=== PATIENT | female | born 1990 | race African-American/Black ===

== ENCOUNTER 2024-04-20 23:31 | Emergency (ER) | payer MEDICAID, OTHER ==
[~2024-04-20] VITALS: Ht 157.5 cm; Wt 83.5 kg
[2024-04-21 00:04] LABS: *OCCULT BLOOD STOOL NEGATIVE (NEGATIVE)
[2024-04-21] MEDS: IV NORMAL SALINE 1000 ML BAG IV ONE (00:14)
[2024-04-21] MEDS ORDERED: PANTOPRAZOLE SODIUM 40 MG VIAL ONE (00:23)
[2024-04-21 00:27] LABS: BASOPHILS # (AUTO) 0.1 K/UL (0.0-0.2); EOSINOPHILS # (AUTO) 0.1 K/uL (0.0-0.7); EOSINOPHILS % (AUTO) 1.5 % (0.0-7.0); HEMATOCRIT 36.6 % (31.2-41.9); HEMOGLOBIN 12.2 g/dL (10.9-14.3); LYMPHOCYTES % (AUTO) 31.9 % (20.5-51.5); MEAN CORPUSCULAR HEMOGLOBIN 25.4 uug (24.7-32.8); MEAN CORPUSCULAR HGB CONC 33 g/dL (32.3-35.6); MEAN CORPUSCULAR VOLUME 76.5 fL (75.5-95.3); MONOCYTES # (AUTO) 0.5 K/uL (0.1-1.30); MONOCYTES % (AUTO) 8.4 % (0.0-11.0); NEUTROPHILS # (AUTO) 3.6 K/uL (1.8-8.9); NEUTROPHILS % (AUTO) 57.2 % (38.5-71.5); PLATELET COUNT (AUTO) 169 K/uL (179-408); RED BLOOD CELL COUNT(AUTO) 4.78 MIL/uL (3.63-4.92); RED CELL DISTRIBUTION WIDTH 18.3 % (12.3-17.7); WHITE BLOOD COUNT (AUTO) 6.3 K/uL (3.8-11.8)
[2024-04-21 00:30] LABS: DIFFERENTIAL COMMENT 1
[2024-04-21] MEDS: PANTOPRAZOLE SODIUM IV 80 MG in IV DEXTROSE 5% 100 ML IV ONE (00:31)
[2024-04-21 00:39] LABS: CALCIUM 8.6 mg/dL (8.5-10.1); CREATININE 0.7 mg/dL (0.6-1.3); POTASSIUM 3.4 mmol/L (3.5-5.1)
[2024-04-21 00:46] LABS: ALBUMIN 3.2 g/dL (3.4-5.0); BILIRUBIN,DIRECT 0.4 mg/dL (0.0-0.2); BILIRUBIN,TOTAL 0.7 mg/dL (0.2-1.0); TOTAL PROTEIN, SERUM 8.9 g/dL (6.4-8.2)
[2024-04-21 01:11] VITALS: BP 131/78; TEMP 98; O2SAT 96
== END 2024-04-21 01:12 | disposition home or self-care (01) ==
LOC: ER 23:47
DX: K92.1 Melena (principal); N91.1 Secondary amenorrhea; R00.0 Tachycardia, unspecified; R04.2 Hemoptysis; R05.9 Cough, unspecified; R10.2 Pelvic and perineal pain; F17.210 Nicotine dependence, cigarettes, uncomplicated; Z20.822 Contact with and (suspected) exposure to COVID-19
CPT/HCPCS: 99285; 71045; 99406; 82270; 36415; 93005; 86870; 96374; 80076; 80048; 85025; 85730; 86850; 86900; 86901; 84702; J2470 ×2; A4606; A4663